=== PATIENT | female | born 1995 | race Caucasian/White ===

== ENCOUNTER → 2019-06-04 | Outpatient (CLI) | payer BC, OTHER ==
[~2019-06-04] MED LIST: AMOCLA875 PO; BUTASPCAF; Bactrim Ds Tab1 EACH PO; CEPH500 PO; CYCL10 PO; Cleocin HCl150 MG PO; HYDACE5 PO; HYDACE5325 PO; HYDR1TAB94 PO; IBUP600 PO; IBUP800 PO; LOPE2C PO; NAPR500 PO; OXYACE5T PO; PRENATALS; PROM25 PO; Percocet 5-3251 EACH PO; RXHYD5325 PO; SERT50 PO; Tylenol80 MG/0.8 PO; Zofran4 MG PO; Zofran8 MG PO
[2019-06-06 15:07] LABS: HPV 16 Negative (Negative); HPV 18 Negative (Negative); HPV OTHER HR TYPES Negative (Negative)
== END | disposition home or self-care (01) ==
LOC: LAB 18:25 → LAB SHORT 18:25
PROVIDERS: Family Medicine
DX: Z00.00 Encounter for general adult medical examination without abnormal findings (principal)
CPT/HCPCS: 87624; G0123

== ENCOUNTER 2023-10-30 19:06 | Emergency (ER) | payer MEDICAID ==
[~2023-10-30] VITALS: Ht 170.2 cm; Wt 145.2 kg
[2023-10-30 20:50] VITALS: BP 134/74
== END 2023-10-30 20:50 | disposition home or self-care (01) ==
LOC: ER 19:06
DX: S93.401A Sprain of unspecified ligament of right ankle, initial encounter (principal); F17.210 Nicotine dependence, cigarettes, uncomplicated; W17.89XA Other fall from one level to another, initial encounter
CPT/HCPCS: 73610; 73630; 99283-25